=== PATIENT | male | born 1955 | race Caucasian/White ===

== ENCOUNTER 2019-02-23 06:19 | Day surgery (SDC) | payer MEDICARE, OTHER, SELFPAY ==
[2019-02-17 15:10] VITALS: BMI 27.6
[2019-02-23] VITALS (7 sets, daily range): BP systolic 102–135; BP diastolic 59–87; PULSE 63–75; RESP 12–20; TEMP 36.1–36.4; O2SAT 94–98; BMI 28.5
[2019-02-23] MEDS: LACTATED RINGERS 1,000 ML 42 ML IV (07:42)
--- NOTE | 2019-02-23 07:47 | PM.HP.1 ---
History of Present Illness History of Present Illness Date Patient Seen: 02/23/19 Time Patient Seen: 07:47 Chief complaint: [id number] REPAIR UMBILICAL HERNIA Narrative: Patient is a gentleman here from [facility] hernia repair. His longstanding and intermittently symptomatic. Patient History Medical History Arthritis (Chronic) Autoimmune disease (Chronic) Heartburn (Acute) Osteoarthritis (Acute) Ulcerative (chronic) enterocolitis (Chronic) Surgical History History of left hip replacement (Resolved 08/20/17) Hx of total knee replacement (Resolved ~2010) Family History Sister Cancer Social History marital status: household members: spouse occupational status: employed Smoking Status: Former smoker alcohol intake: current substance use type: does not use Family & Social History Family History Sister Cancer Social History: household members spouse Tobacco & Substance use: Tobacco type cigarettes Smoking Status Former smoker alcohol intake current alcohol intake frequency 0-2 drinks per day Substance Use Type does not use Meds Home Medications and Allergies Home Medications Medication Instructions Recorded Confirmed Type omeprazole 20 mg PO DAILY #0 07/04/10 02/23/19 History cyanocobalamin (vitamin B-12) 2,000 mcg PO DAILY #0 07/05/10 02/23/19 History [Vitamin B-12] sulfasalazine 500 mg PO BID #0 07/05/10 02/23/19 History amitriptyline 10 mg tablet 30 mg PO BEDTIME 12/16/18 02/23/19 History ascorbic acid (vitamin C) 1,000 mg 1,000 mg PO DAILY 12/16/18 02/23/19 History tablet celecoxib 200 mg capsule 200 mg PO DAILY 12/16/18 02/23/19 History cholecalciferol (vitamin D3) 1,000 5,000 unit PO DAILY 12/16/18 02/23/19 History unit capsule tramadol 50 mg tablet 150 mg PO BID 12/16/18 02/23/19 History [place]-3 Fish Oil 800 mg PO DAILY 02/17/19 02/23/19 History coenzyme Q10 [CoQ-10] 100 mg PO DAILY 02/17/19 02/23/19 History Allergies Allergy/AdvReac Type Severity Reaction Status Date / Time No Known Drug Allergies Allergy Verified 02/23/19 07:11 Review of Systems Review of Systems ROS Unobtainable: All systems reviewed & are unremarkable except as noted in HPI and below Exam Vital Signs (past 8 hours): - 02/23/19 07:21 Temperature 96.9 F L Pulse Rate 71 Respiratory Rate 15 Blood Pressure 135/82 Pulse Oximetry 98 Oxygen Delivery Method Room Air Narrative Exam Narrative: Operative no apparent distress. Lungs are clear to auscultation no rales or rhonchi heart regular rate and rhythm no murmur gallop abdomen is scaphoid soft nontender without mass he has reducible umbilical hernia with skin that is attenuated over it. Alert and oriented x3. Assessment & Plan Assessment & Plan narrative: Patient for pair of an umbilical hernia with possible use of mesh. All questions answered risks of bleeding infection recurrence have been discussed. He appears to understand wishes to proceed
--- NOTE | 2019-02-23 07:49 | PM.PREOP ---
Pre-operative Note Interval Note History & Physical reviewed/Exam performed by Physician: Yes Changes to H&P: No
[2019-02-23] MEDS: CEFAZOLIN 2 GM/100 ML FROZ.PIGGY IV (07:50)
--- NOTE | 2019-02-23 08:03 | SUR.OPER ---
Supine on padded OR bed, head on pillow, arms secured on padded arm boards at <90 degrees abduction, legs uncrossed, safety belt at thigh, tape over blanket over lower legs.
[2019-02-23] MEDS: BUPIVACAINE 0.5% (PF) VIAL 30 ML INJ (08:09)
[2019-02-23] MEDS: fentaNYL 100 MCG/2 ML INJ 50 MCG IV ×2 (08:48→08:53)
--- NOTE | 2019-02-23 08:49 | PM.OP.1 ---
Operative Date/Time/Diagnoses Date of procedure: 02/23/19 Time of procedure: 08:39 Pre-op diagnosis: Reducible umbilical hernia Post-op diagnosis: same Procedure & Clinicians Procedure: Repair with underlay of mesh Same procedure as scheduled: Yes Indications: Symptomatic hernia Surgeon: Bi Valdez Click Yes if Unassisted: Yes Anesthesia Type: General Operative Notes Findings: Small defect. Preperitoneal fat within it. Closure Type: primary Specimen(s): none sent Prosthetic devices, grafts, tissues, transplants, or devices: 1.7 in diameter circular mesh in the preperitoneal space Estimated Blood Loss (mL): 5 Blood products transfused: none Procedure in detail: Patient is placed supine on the operating room table and underwent general LMA anesthesia. Was prepped and draped in the usual fashion. Local anesthetic was infiltrated in field block fashion around the umbilicus. Curvilinear incision was made the infraumbilical fold. Was carried down level of fascia. The hernia sac was identified entered and the contents reduced. The fascial edge was cleared. I a cleared the tissue beneath the fascia in the preperitoneal space back so that I could put a 1.7 in diameter piece of circular mesh under the muscle wall. The tails were incorporated into the closure which was accomplished with interrupted 0 0 Ethibond suture. The umbilicus was tacked down to the fascia with an interrupted 3 0 Vicryl. Subcu was closed with interrupted 3 0 Vicryl. Skin was closed running 4 0 Vicryl subcuticular stitch and Steri-Strips. Dressing was applied. Patient tolerated the procedure well. Complications: none Post-operative Condition: stable Disposition: PACU
[2019-02-23] MEDS: OXYCODONE/ACETAMINOPHEN 5/325 TABLET 1 TAB PO (08:57)
--- NOTE | 2019-02-23 09:38 | SUR.PHASEII ---
brought in, d/c instructions discussed by Norberto Smallwood RN. Both voiced an understanding, Pt dressed with assist of , left when ready and left in stable condition. Dressing remained c/d/i.
== END 2019-02-23 09:40 | disposition home or self-care (01) ==
PROVIDERS: PCP Internal Medicine; Visit Provider Specialist
PROC: (CPT 49585; principal; 2019-02-23 07:45)
DX: K42.9 Umbilical hernia without obstruction or gangrene (principal)
CPT/HCPCS: 49585; C1781; J0690; J1100; J1885; J2250; J2405; J2704; J3010

== ENCOUNTER → 2020-02-26 18:56 | Outpatient (ROUT) | payer MEDICARE, OTHER, SELFPAY ==
[2020-02-26 19:32] LABS: Aspartate Aminotransferase 33 IU/L (17-59); BUN Creatinine Ratio 27.9 (6-22); Blood Urea Nitrogen 17 mg/dL (9-20); Calcium 9.8 mg/dL (8.4-10.2); Carbon Dioxide 27 mmol/L (22-32); Chloride 103 mmol/L (98-107); Cholesterol 229 mg/dL (140-199); Estimated Glomerular Filt Rate > 60.0 mL/min (>60); Glucose 94 mg/dL (80-110); HDL Cholesterol 53 mg/dL (40-60); HEMOLYSIS < 15 (0-50); LDL Cholesterol Calculated 161 mg/dL (<100); Potassium 4.4 mmol/L (3.4-5.1); Sodium 138 mmol/L (137-145); Triglycerides 77 mg/dL (35-150)
[2020-02-26 20:02] LABS: Prostate Specific Antigen 1.65 ng/mL (0.10-4.00)
== END ==
PROVIDERS: PCP Internal Medicine; Visit Provider Internal Medicine
DX: I10 Essential (primary) hypertension (principal); E78.2 Mixed hyperlipidemia; N40.0 Benign prostatic hyperplasia without lower urinary tract symptoms
CPT/HCPCS: 80048; 80061; 84153; 84450

== ENCOUNTER → 2020-03-07 11:36 | Outpatient (CLI) | payer MEDICARE, OTHER, SELFPAY ==
--- NOTE | 2020-03-07 | DI.MRI.S_ITS ---
PROCEDURE: MR ORBITS FACE NECK WO/W CON INDICATIONS: Localized swelling, mass and lump, neck. The patient describes a lesion along the right posterior neck. TECHNIQUE: Sagittal/axial/coronal T1 spin echo and STIR. After the administration of contrast, axial/coronal/sagittal T1 fast spin echo with fat saturation through the neck. COMPARISON: [facility], MR, MR CERVICAL SPINE WITH CONTRAST, 04/03/2019, 10:40. [facility], MR, MR CERVICAL SPINE WITHOUT CONTRAST, 03/22/2019, 10:18. FINDINGS: Image quality: This examination is limited by involuntary motion artifact. The patient cannot feel the lump at the time of this study and is not marked on the skin. Lymph nodes: No enlarged nodes are seen throughout the neck. Vessels: Visualized vasculature appears normal, with tay flow voids and enhancement. Neck spaces: In this patient with this given history, scrutiny is given to the right posterior neck at the area of the palpable abnormality is described to the patient. Within this region, no masses or fluid collections are seen. No lipomas are detected. No abnormal enhancement can be seen. The oropharynx, nasopharynx and pharynx are unremarkable, without mucosal lesions seen. Vocal cords, false vocal cords, pyriform sinuses, epiglottis, vallecula, and tongue base all appear normal. Glands: The parotid and submandibular glands appear normal. Thyroid gland is not well seen. Miscellaneous: Visualized brain and orbits appear normal. Lung apices appear clear. Superficial soft tissues appear normal. Visualized sinuses and mastoids appear clear. Bones: Marrow has normal overall signal. Degenerative changes are seen, particularly involving the lower cervical spine. IMPRESSION: No imaging explanation is found for the patient's presenting history of a lump along the right posterior neck. Dictated by: Ramin Carroll M.D. on 03/07/2020 at 13:32 Approved by: Ramin Carroll M.D. on 03/07/2020 at 13:35
== END ==
PROVIDERS: PCP Internal Medicine; Referring Provider Internal Medicine; Visit Provider Internal Medicine
DX: R22.1 Localized swelling, mass and lump, neck (principal)
CPT/HCPCS: 70543

== ENCOUNTER → 2020-03-25 14:06 | Outpatient (CLI) | payer MEDICARE, OTHER, SELFPAY ==
[2020-03-28 07:40] LABS: COVID19 Sendout Not Detected (Not Detect)
== END ==
PROVIDERS: PCP Internal Medicine; Referring Provider Physician Assistant; Visit Provider Physician Assistant
DX: Z11.59 Encounter for screening for other viral diseases (principal)
CPT/HCPCS: 87635

== ENCOUNTER 2020-03-28 12:28 | Day surgery (SDC) | payer MEDICARE, OTHER, SELFPAY ==
[2020-03-22 12:46] VITALS: BMI 29.9
[2020-03-28] VITALS (10 sets, daily range): BP systolic 135–156; BP diastolic 75–92; PULSE 69–77; RESP 10–22; TEMP 36.3–37; O2SAT 89–100; BMI 29.9
[2020-03-28] MEDS: LACTATED RINGERS 1,000 ML 100 ML IV ×2 (12:43→16:49)
[2020-03-28] MEDS: CEFAZOLIN 2 GM/100 ML FROZ.PIGGY IV (14:55)
--- NOTE | 2020-03-28 15:15 | SUR.OPER ---
Supine on padded OR bed, head on pillow, arms secured on padded arm boards at <90 degrees abduction, legs uncrossed, safety belt at thigh, tape over blanket over lower legs.
[2020-03-28] MEDS: BUPIVACAINE 0.5% (PF) VIAL 30 ML INJ (15:28)
--- NOTE | 2020-03-28 16:32 | P.OP_ITS ---
Operative Date/Time/Diagnoses Date of procedure: 03/28/20 Time of procedure: 16:32 Pre-op diagnosis: Recurrence umbilical hernia Post-op diagnosis: other (The actual repair was intact but it appeared that the fascia had pulled away above the mesh repair.) Procedure & Clinicians Procedure: Repair of recurrent hernia with underlay of mesh Same procedure as scheduled: Yes Indications: Symptomatic hernia Surgeon: Bi Valdez Click Yes if Unassisted: Yes Anesthesia Type: General Operative Notes Findings: Fascial defect above the prior repair. Mesh was still intact from the prior operation. Closure Type: primary Specimen(s): none sent Prosthetic devices, grafts, tissues, transplants, or devices: 2.5 in diameter circular mesh placed in the preperitoneal space Estimated Blood Loss (mL): 15 Blood products transfused: none Procedure in detail: Patient was placed supine on the operating room table underwent general LMA anesthesia she he was prepped and draped in the usual fashion. Local anesthetic was infiltrated overlying the hernia at the upper end of his umbilicus. It was carried down to the level the fascial defect. The hernia contained fat. I cleared the fascial edge of tissue reduce the fat. I dissected the underside of the muscular wall back far enough to place a piece of mesh to and 1/2 inches in diameter. This required me to take down adhesions to the backside of the circular mesh that had been used for the prior umbilical hernia repair. This appeared to be intact. I cleared the fat off a portion of the muscle circumferentially and placed sutures through the mesh and then up through fashion down through fashion tied securing the mesh in 4 quadrants to the anterior abdominal wall. I then closed the fascia from side to side using interrupted [id number] 0 Ethibond. The subcu was closed with interrupted 3 0 Vicryl and skin was closed running 4-0 Vicryl subcuticular stitch and Steri- Strips. Dressing was applied the patient tolerated the procedure well. He was awakened taking the recovery area in good condition. We did not enter the peritoneal space. Complications: none Post-operative Condition: stable Disposition: PACU Plan for aftercare: Follow-up in the office
[2020-03-28] MEDS: fentaNYL 100 MCG/2 ML INJ IV ×2 (16:48→16:53)
[2020-03-28] MEDS: HYDROMORPHONE 2 MG INJ IV ×2 (16:55→17:01)
--- NOTE | 2020-03-28 16:59 | SUR.PHASEI ---
medicated for umbilical pain x3; responsive to voice, repositioned for comfort and to enhance respirations. Currently quietly resting with eyes closed, rates pain 7/10
[2020-03-28] MEDS: OXYCODONE IR 5 MG TABLET PO ×2 (17:07→17:37)
[2020-03-28] MEDS: ACETAMINOPHEN 325 MG TABLET 975 MG PO (17:08)
--- NOTE | 2020-03-28 17:13 | SUR.PHASEI ---
report given to Priti Chan RN who has been helping with the patient. He c/o dizziness, HOB lowered, knees elevated. VSS. Oriented, resp unlabored.
--- NOTE | 2020-03-28 19:09 | SUR.PHASEII ---
1820-Pt up and ambulating gait steady, getting dressed now with at side.
== END 2020-03-28 18:30 | disposition home or self-care (01) ==
PROVIDERS: PCP Internal Medicine; Referring Provider Specialist; Visit Provider Specialist
PROC: (CPT 49585; principal; 2020-03-28 13:45)
DX: K42.9 Umbilical hernia without obstruction or gangrene (principal)
CPT/HCPCS: 49585; C1781; J0690; J1100; J1170; J2405; J2704; J3010

== ENCOUNTER → 2022-01-03 15:21 | Outpatient (CLI) | payer MEDICARE, OTHER, SELFPAY ==
[2022-01-03 16:37] LABS: Alanine Aminotransferase 64 IU/L (<50); Albumin 4.2 g/dL (3.5-5.0); Albumin Globulin Ratio 1.8 (1.0-2.8); Alkaline Phosphatase 70 U/L (38-126); Aspartate Aminotransferase 42 IU/L (17-59); BUN Creatinine Ratio 27.8 (6-22); Bilirubin Total 1.2 mg/dL (0.2-1.3); Blood Urea Nitrogen 20 mg/dL (9-20); Calcium 8.8 mg/dL (8.4-10.2); Carbon Dioxide 28 mmol/L (22-32); Chloride 103 mmol/L (98-107); Cholesterol 222 mg/dL (140-199); Estimated Glomerular Filt Rate > 60 mL/min (>60); Globulin 2.3 g/dL (1.7-4.1); Glucose 89 mg/dL (80-110); HDL Cholesterol 53 mg/dL (40-60); HEMOLYSIS < 15 (0-50); LDL Cholesterol Calculated 151 mg/dL (<100); Potassium 4.3 mmol/L (3.4-5.1); Sodium 138 mmol/L (137-145); Total Protein 6.5 g/dL (6.3-8.2); Triglycerides 91 mg/dL (35-150)
[2022-01-04 13:50] LABS: Prostate Specific Antigen 0.654 ng/mL (0.10-4.00)
== END ==
PROVIDERS: PCP Internal Medicine; Referring Provider Internal Medicine; Visit Provider Internal Medicine
DX: E78.2 Mixed hyperlipidemia (principal); N40.0 Benign prostatic hyperplasia without lower urinary tract symptoms; R03.0 Elevated blood-pressure reading, without diagnosis of hypertension
CPT/HCPCS: 36415; 80053; 80061; 84153; 84443

== ENCOUNTER → 2023-04-02 16:46 | Outpatient (CLI) | payer MEDICARE, OTHER, SELFPAY ==
[2023-04-02 18:01] LABS: Appearance Urine UA CLEAR; Bilirubin Urine UA NEGATIVE (NEGATIVE); Color Urine UA YELLOW; Glucose Urine UA NEGATIVE (Negative); Ketones Urine UA NEGATIVE (NEGATIVE); Leukocyte Esterase Urine UA 3+ (NEGATIVE); Nitrite Urine UA NEGATIVE (Negative); Occult Blood Urine UA TRACE-INTACT (Negative); Protein Urine UA NEGATIVE (Negative); Urobilinogen Urine UA 0.2 E.U./dL (0.2); pH Urine UA 6.5 (4.5-8.0)
[2023-04-02 18:42] LABS: Bacteria Urine Many (>30); RBC Urine 1-5/HPF (0-5/HPF); WBC Urine >100/HPF (0-5/HPF)
[2023-04-02 18:43] LABS: Culture Indicated Urine Specimen Cultured; Squamous Epithelial Cell Urine 0-1 /HPF (0-5/HPF); White Blood Cell Casts Urine 1-5/LPF
== END ==
PROVIDERS: PCP Internal Medicine; Referring Provider Internal Medicine; Visit Provider Internal Medicine
DX: N41.0 Acute prostatitis (principal)
CPT/HCPCS: 81001; 87077; 87086; 87186

== ENCOUNTER → 2024-06-11 16:20 | Outpatient (CLI) | payer MEDICARE, OTHER, SELFPAY ==
[2024-06-11 17:55] LABS: Cholesterol 173 mg/dL (140-199); Glucose 97 mg/dL (80-110); HDL Cholesterol 41 mg/dL (40-60); LDL Cholesterol Calculated 74 mg/dL (<100); Triglycerides 289 mg/dL (35-150)
[2024-06-11 18:24] LABS: Prostate Specific Antigen 0.498 ng/mL (0.10-4.00)
== END ==
PROVIDERS: PCP Internal Medicine; Referring Provider Internal Medicine; Visit Provider Internal Medicine
DX: E78.2 Mixed hyperlipidemia (principal); I50.22 Chronic systolic (congestive) heart failure; N40.1 Benign prostatic hyperplasia with lower urinary tract symptoms; N13.8 Other obstructive and reflux uropathy
CPT/HCPCS: 36415; 80061; 82947; 84153

== ENCOUNTER → 2024-08-19 15:25 | Outpatient (CLI) | payer MEDICARE, OTHER, SELFPAY ==
[2024-08-19 16:15] LABS: Appearance Urine UA CLEAR; Bilirubin Urine UA NEGATIVE (NEGATIVE); Color Urine UA YELLOW; Glucose Urine UA NEGATIVE (Negative); Ketones Urine UA NEGATIVE (NEGATIVE); Leukocyte Esterase Urine UA NEGATIVE (NEGATIVE); Nitrite Urine UA NEGATIVE (Negative); Occult Blood Urine UA NEGATIVE (Negative); Protein Urine UA NEGATIVE (Negative); Urobilinogen Urine UA 0.2 E.U./dL (0.2)
[2024-08-19 16:20] LABS: Bacteria Urine None Seen; Culture Indicated Urine Cult Not Indicated; RBC Urine None Seen (0-5/HPF); Squamous Epithelial Cell Urine None Seen (0-5/HPF); Urine Volume 10mL (spun); WBC Urine 0-1/HPF (0-5/HPF)
== END ==
PROVIDERS: PCP Internal Medicine; Referring Provider Internal Medicine; Visit Provider Internal Medicine
DX: N41.0 Acute prostatitis (principal)
CPT/HCPCS: 81001

== ENCOUNTER → 2025-03-10 16:11 | Outpatient (CLI) | payer MEDICARE, OTHER, SELFPAY ==
[2025-03-10 17:45] LABS: Blood Urea Nitrogen 27 mg/dL (9-20); Calcium 9.6 mg/dL (8.4-10.2); Carbon Dioxide 29 mmol/L (22-32); Chloride 101 mmol/L (98-107); Estimated Glomerular Filt Rate > 60 mL/min (>60); Glucose 104 mg/dL (70-99); HEMOLYSIS < 15 (0-50); Magnesium 1.9 mg/dL (1.6-2.3); Potassium 5.0 mmol/L (3.4-5.1); Sodium 136 mmol/L (137-145)
== END ==
LOC: LAB 16:11
PROVIDERS: PCP Internal Medicine; Referring Provider Internal Medicine; Visit Provider Internal Medicine
DX: E87.5 Hyperkalemia (principal)
CPT/HCPCS: 36415; 80048; 83735